=== PATIENT | male | born 1955 | race Caucasian/White ===

== ENCOUNTER 2017-06-24 16:37 | Inpatient (IN) ==
[2017-06-24] MEDS ORDERED: 0.9 % Sodium Chloride 1,000 ML IVC ONE (17:05)
[2017-06-24] MEDS ORDERED: Ondansetron 4 MG/2 ML VIAL IVP ONE (17:07)
[2017-06-24] MEDS ORDERED: Hyoscyamine 0.5 MG/ML MLS IVP ONE (17:07)
--- NOTE | 2017-06-24 17:13 | Emergency Department Note ---
Disposition Clinical Impression: SBO (small bowel obstruction) Abdominal pain Qualifiers: Abdominal location: generalized Qualified Code(s): R10.84 - Generalized abdominal pain Disposition: Admitted As Inpatient Condition: Fair Time of Disposition: 19:11 Abdominal Pain HPI - General Chief Complaint: ED Abdominal Pain Stated Complaint: abd pain Time Seen by Provider: 06/24/17 16:55 Source: patient Nursing Notes Reviewed: Yes Vital Signs Reviewed: Yes - History of Present Illness HPI Narrative: Patient is a 62-year-old male who presents to [facility] ED with a chief complaint of abdominal pain. States he ate breakfast this morning eggs and blancas and then approximately within one hour, he started having worsening abdominal pain, nausea. States he made himself vomit. No chest pain, difficulty breathing, problems with urination or bowel movements. Patient has not had any intra- abdominal surgeries in the past. Denies any fevers or chills. Patient admits to drinking alcohol approximately 5-6 beers every other day. He is also a smoker, denies any illicit drug use. Pt Subjective Complaint: abdominal pain Onset (ago): hour(s) Consistency: Worsening Location: diffuse Pain Severity: severe Pain Scale: 8 Quality: aching Radiation: none Migration to: no migration Improves with: nothing Worsens with: eating Associated symptoms: Reports: nausea, vomiting. Denies: diarrhea, fever, chills , constipation, dysuria Treatments prior to arrival: none - Related Data Allergies Allergy/AdvReac Type Severity Reaction Status Date / Time No Known Allergies Allergy Verified 06/24/17 16:45 All systems ED: reviewed and negative except as stated. Abdominal Pain PMH - Past Medical History Medical history: Reports: no medical history Male Surgical History: Reports: other Psychiatric history: Reports: no psych history - Social History Smoking status: Current every day smoker Alcohol use: Reports: occasionally Drug use: Reports: none Physical Exam - General Limitations: no limitations General appearance: alert - Head Head exam: atraumatic, normocephalic, normal inspection - Eye Eye exam: Present: normal appearance, EOMI - ENT ENT exam: normal exam, normal oropharynx, mucous membranes moist - Neck Neck exam: Present: normal inspection, full ROM, trachea midline - Chest Chest inspection: Present: normal inspection, symmetric chest wall rise - Respiratory Respiratory exam: Present: normal lung sounds bilaterally - Cardiovascular Cardiovascular exam: Present: regular rate, normal rhythm, normal heart sounds - Abdominal Exam Abdominal exam: Present: soft, tenderness, normal bowel sounds. Absent: distention, guarding, rebound, rigidity Abdominal tenderness: Present: diffuse, moderate - Extremities Exam Extremities exam: Present: normal inspection, full ROM. Absent: tenderness, pedal edema - Neurological Exam Neurological exam: Present: alert, oriented X3 - Psychiatric Psychiatric exam: Present: normal affect, normal mood - Skin Skin exam: Present: warm, dry, intact, normal color Course Course Narrative: Patient seen and examined. Generalized abdominal pain with nausea and vomiting. Patient does drink alcohol. Abdominal labs, CT abdomen and pelvis ordered. - Reevaluation(s) Reevaluation #1: CT shows small bowel obstruction with a transition point in the mid right abdomen. Mild leukocytosis of 14. I discussed with surgeon Dr. Ennis who will see the patient in consult tomorrow. I discussed with hospitalist who has accepted patient for admission. Patient was still having pain. He was given 50 g of fentanyl. He did not have relief with this so 5 mg of Nubain were ordered. Time: 19:10 Vital Signs Temperature 97.8 F 06/24/17 16:46 Pulse Rate 56 06/24/17 16:46 Respiratory Rate 20 06/24/17 16:46 Blood Pressure 127/76 06/24/17 16:46 O2 Sat by Pulse Oximetry 98 06/24/17 16:46 Temperature 98.6 F 06/25/17 19:47 Pulse Rate 56 06/25/17 19:47 Respiratory Rate 16 06/25/17 19:47 Blood Pressure 142/77 06/25/17 20:47 O2 Sat by Pulse Oximetry 96 06/25/17 19:47 Oxygen Delivery Oxygen Delivery Room Air Abdominal Pain - Medical Records Medical records reviewed: Yes I reviewed the patient's medical records. - Lab Data Lab results reviewed: Yes I reviewed the patient's lab results. Result diagrams: 06/25/17 06:08 06/25/17 06:08 Lab Results 06/24/17 06/24/17 06/24/17 Range/Units 17:10 17:10 17:38 WBC 14.9 H (4.3-11.1) K/mcL RBC 4.55 (4.19-5.50) M/mcL Hgb 14.2 (12.9-16.9) g/dL Hct 40.8 (37.5-50.1) % MCV 89.7 (83.0-100.0) fL MCH 31.2 (28.0-33.3) pg MCHC 34.8 (31.6-35.5) g/dL RDW 12.7 (11.5-14.5) % Plt Count 393 (140-400) K/mcL MPV 9.0 L (9.4-12.4) fL Immature Gran % 0.5 (0-4) % Seg Neutrophils % 85.6 % Lymphocytes % 9.5 % Monocytes % 3.8 % Eosinophils % 0.1 % Basophils % 0.5 % Neutrophils # 12.8 H (1.6-8.9) K/mcL Lymphocytes # 1.4 (0.6-4.6) K/mcL Monocytes # 0.6 (0.0-1.3) K/mcL Eosinophils # 0.0 (0.0-0.6) K/mcL Basophils # 0.1 (0.0-0.2) K/mcL Immature Plt Fraction 2.0 (1.1-6.1) % Sodium 137 (136-145) mEq/L Potassium 4.0 (3.5-5.1) mEq/L Chloride 104 (98-107) mEq/L Carbon Dioxide 27 (23-29) mEq/L BUN 14 (8-23) mg/dL Creatinine 0.85 (0.70-1.30) mg/dL Est GFR ( Amer) > 60 (> 60) Est GFR (Non-Af Amer) > 60 (> 60) BUN/Creatinine Ratio 16 (6-26) Glucose 123 H (70-105) mg/dL Calculated Osmolality 286 (280-300) Calcium 9.8 (8.6-10.3) mg/dL Total Bilirubin 0.4 (0.3-1.0) mg/dL Direct Bilirubin 0.1 (0.0-0.2) mg/dL Indirect Bilirubin 0.3 (0.0-1.2) mg/dL AST 18 (13-39) Units/L ALT 15 (7-52) Units/L Alkaline Phosphatase 81 (34-104) Units/L Serum Total Protein 7.3 (6.4-8.9) g/dL Albumin 4.5 (3.5-5.7) g/dL Globulin 2.8 (2.4-3.5) g/dL Albumin/Globulin Ratio 1.6 (1.1-2.2) Lipase 8 L (11-82) Units/L Urine Color Yellow (Yellow) Urine Clarity Cloudy A (Clear) Urine pH 7.5 (5.0-8.0) pH Units Ur Specific Menard 1.023 (1.010-1.025) Urine Protein Negative (Neg-Trace) mg/dL Urine Glucose (UA) Normal (Normal) mg/dL Urine Ketones Negative (Negative) mg/dL Urine Blood Negative (Negative) Urine Nitrite Negative (Negative) Urine Bilirubin Negative (Negative) Urine Urobilinogen Normal (Normal) mg/dL Ur Leukocyte Esterase Negative (Negative) Urine Microscopic RBC 0-3 (0-3) per hpf Urine Microscopic WBC 0-3 (0-3) per hpf Ur Squamous Epith Cells Moderate H (None-Few) per lpf Urine Bacteria None Seen (None-Few) per hpf Hyaline Casts None Seen (None-Few) per lpf Ur Culture Indicated? NO (NO) Ethyl Alcohol < 10 (Less than 10) mg/dL - Radiology Data Radiology results reviewed: Yes I reviewed the patient's radiology results. Abdomen/Pelvis CT 06/24/17 17:06 IMPRESSION: Findings likely consistent with the early small-bowel obstruction, transition point appears to be within the right mid abdomen. D/ / Martin Reyna MD / Martin Reyna MD Interpreting Provider: Martin Reyna MD Attestation Statement - Attestation Attestation: I examined this patient and my medical decision-making was reviewed with the Resident Physician. I agree with the documented findings, disposition and treatment plan as described except to the extent set forth below. History and Exam by me shows: Small bowl obstruction, will admit, npo, general surgery consult. Patient stable at time of admission.
[2017-06-24 17:17] LABS: Basophils # 0.1 K/mcL (0.0-0.2); Basophils % 0.5 %; Eosinophils % 0.1 %; Hematocrit 40.8 % (37.5-50.1); Hemoglobin 14.2 g/dL (12.9-16.9); Immature Granulocytes % 0.5 % (0-4); Lymphocytes # 1.4 K/mcL (0.6-4.6); Lymphocytes % 9.5 %; Mean Corpuscular HGB Conc 34.8 g/dL (31.6-35.5); Mean Corpuscular Hemoglobin 31.2 pg (28.0-33.3); Mean Corpuscular Volume 89.7 fL (83.0-100.0); Monocytes # 0.6 K/mcL (0.0-1.3); Monocytes % 3.8 %; Neutrophils # 12.8 K/mcL (1.6-8.9); Platelet Count 393 K/mcL (140-400); Red Blood Count 4.55 M/mcL (4.19-5.50); Red Cell Distribution Width 12.7 % (11.5-14.5); Segmented Neutrophils % 85.6 %
[2017-06-24 17:39] LABS: Alanine Aminotransferase 15 Units/L (7-52); Albumin 4.5 g/dL (3.5-5.7); Albumin/Globulin Ratio 1.6 (1.1-2.2); Alkaline Phosphatase 81 Units/L (34-104); Aspartate Amino Transferase 18 Units/L (13-39); BUN/Creatinine Ratio 16 (6-26); Bilirubin,Direct 0.1 mg/dL (0.0-0.2); Bilirubin,Indirect 0.3 mg/dL (0.0-1.2); Bilirubin,Total 0.4 mg/dL (0.3-1.0); Blood Urea Nitrogen 14 mg/dL (8-23); Calcium 9.8 mg/dL (8.6-10.3); Carbon Dioxide 27 mEq/L (23-29); Chloride 104 mEq/L (98-107); Globulin 2.8 g/dL (2.4-3.5); Glucose 123 mg/dL (70-105); Lipase 8 Units/L (11-82); Osmolality,Calculated 286 (280-300); Sodium 137 mEq/L (136-145); Total Protein 7.3 g/dL (6.4-8.9); eGFR For African Americans > 60 (> 60); eGFR For Non-African Americans > 60 (> 60)
[2017-06-24 17:44] LABS: Bilirubin,Urine Negative (Negative); Blood,Urine Negative (Negative); Clarity,Urine Cloudy (Clear); Color,Urine Yellow (Yellow); Glucose,Urine (UA) Normal (Normal); Ketones,Urine Negative (Negative); Leukocyte Esterase,Urine Negative (Negative); Nitrite,Urine Negative (Negative); PH,Urine 7.5 pH Units (5.0-8.0); Protein,Urine Negative (Neg-Trace); Specific Gravity,Urine 1.023 (1.010-1.025); Urobilinogen,Urine Normal (Normal)
[2017-06-24 17:46] LABS: Bacteria,Urine None Seen per hpf (None-Few); Hyaline Casts,Urine None Seen per lpf (None-Few); RBC,Urine 0-3 per hpf (0-3); Squamous Epithelial Cell,Urine Moderate per lpf (None-Few); WBC,Urine 0-3 per hpf (0-3)
[2017-06-24] MEDS ORDERED: *HR* FentaNYL (PF) 100 MCG/2 ML VIAL IVP ONE (18:03)
[2017-06-24] MEDS ORDERED: *HR* Nalbuphine 20 MG/ML AMPUL IVP ONE (18:37)
[2017-06-24] MEDS ORDERED: *HR* Nalbuphine 10 MG/ML AMPUL IVP ONE (18:45)
[2017-06-24] MEDS ORDERED: Haloperidol Lactate 5 MG/ML VIAL IVP ONE (18:57)
[2017-06-24] MEDS ORDERED: Naloxone 0.4 MG/ML INJ IVP PRN (19:42)
[2017-06-24] MEDS ORDERED: Ondansetron 4 MG/2 ML VIAL IVP PRN (19:42)
[2017-06-24] MEDS ORDERED: *HR* Promethazine 25 MG/ML VIAL IVP PRN (19:42)
[2017-06-24] MEDS ORDERED: 0.9 % Sodium Chloride 1,000 ML IVC SCH (19:45)
[2017-06-24] MEDS ORDERED: *HR* FentaNYL (PF) 100 MCG/2 ML VIAL IVP PRN (19:52)
--- NOTE | 2017-06-24 20:10 | Internal Med History&Physical ---
Date of Encounter: 06/24/17 Time of Encounter: 20:09 Internal Medicine - H&P: HPI Admitted From: Home Plans for Post Hospital Care: Home History of present illness: Patient is a 62-year-old male who presents to [facility] ED with a chief complaint of abdominal pain. States he ate breakfast this morning eggs and blancas and then approximately within one hour, he started having worsening abdominal pain, nausea. States he made himself vomit but denies hematemesis or bloody stool. No chest pain, difficulty breathing, problems with urination or bowel movements. Patient has not had any intra-abdominal surgeries in the past. Denies any fevers or chills. Patient admits to drinking alcohol approximately 5 -6 beers every other day. He is also a smoker, denies any illicit drug use. Past Med Surg Social Fam HX - Past Medical History Medical history: no medical history Psychiatric history: no psych history - Social History Smoking Status: Current every day smoker Smokeless Tobacco Status: No Alcohol use: occasionally Drug use: none Internal Medicine - H&P: Meds 3 Allergy/AdvReac Type Severity Reaction Status Date / Time No Known Allergies Allergy Verified 06/24/17 16:45 All Systems PM: A 10-system review of systems was performed and is negative for pertinent findings except as documented above in the HPI. Review of systems: REVIEW OF SYSTEMS: CONSTITUTIONAL: No weight loss, fever, chills, weakness or fatigue. HEENT: Eyes: No visual loss, blurred vision, double vision or yellow sclerae. Ears, Nose, Throat: No hearing loss, sneezing, congestion, runny nose or sore throat. SKIN: No rash or itching. CARDIOVASCULAR: No chest pain, chest pressure or chest discomfort. No palpitations or edema. RESPIRATORY: No shortness of breath, cough or sputum. GASTROINTESTINAL: see HPI. GENITOURINARY: No dysuria, urgency, or frequency. NEUROLOGICAL: No headache, dizziness, syncope, paralysis, ataxia, numbness or tingling in the extremities. No change in bowel or bladder control. MUSCULOSKELETAL: No muscle, back pain, joint pain or stiffness. HEMATOLOGIC: No anemia, bleeding or bruising. LYMPHATICS: No enlarged nodes. No history of splenectomy. PSYCHIATRIC: No history of depression or anxiety. ENDOCRINOLOGIC: No reports of sweating, cold or heat intolerance. No polyuria or polydipsia. - Constitutional Vitals: Temp Pulse Resp BP Pulse Ox 97.8 F 70 16 141/83 98 06/24/17 16:46 06/24/17 19:15 06/24/17 19:15 06/24/17 19:15 06/24/17 19:15 General appearance: Present: A&O X 3 Exam: PHYSICAL EXAMINATION: GENERAL APPEARANCE: The patient is alert, oriented and in no acute distress. HEENT: Head is normocephalic. The sinuses are nontender. Pupils are equal and reactive. The nares are patent. Oropharynx clear without lesions. NECK: Supple without lymphadenopathy. HEART: Regular rate and rhythm. LUNGS: No crackles or wheezes are heard. ABDOMEN: Soft, mildly diffusely tender, nondistended with good bowel sounds heard. Inguinal area is normal. EXTREMITIES: Without cyanosis, clubbing or edema. NEUROLOGICAL: Gross nonfocal. SKIN: Warm and dry without any rash. Internal Med - H&P Results - Labs CBC & Chem 7: 06/24/17 17:10 06/24/17 17:10 - Assessment and plan (1) SBO (small bowel obstruction) Current Visit: Yes Status: Acute Assessment and plan: - Presented with acute onset abdominal pain with nausea and vomiting. - I personally reviewed CT results, which revealed possible partial small bowel obstruction. - I would keep the patient nothing by mouth, general surgery already consulted, will see the patient in a.m. - IV fluid, pain control, and antiemetics. - pt refused NG. (2) Alcohol abuse Current Visit: No Status: Chronic Assessment and plan: - History of alcohol abuse, he was found to be agitated at ED, and required Haldol, unclear if this is related to alcohol withdrawal or abdominal pain. His belly is soft, mildly tender with palpation, no rebound, and positive bowel sounds on physical. - We will check lactic acid to rule out ischemic bowel. Ativan when necessary and CIWA. - Banana bag with thiamine. (3) Nicotine abuse Current Visit: No Status: Chronic Assessment and plan: - Nicotine patch daily. - Time Spent With Patient Total time spent is greater than 50% in coordination of care (as documented) at patient's floor/unit and/or counseling patient: Greater than 35 minutes
[2017-06-24] MEDS ORDERED: MVI, adult with vitamin K 10 ML in 0.9 % Sodium Chloride 1,000 ML IVC ONE (20:11)
[2017-06-24] MEDS ORDERED: *HR* LORazepam 2 MG/ML VIAL IVP PRN (20:16)
[2017-06-24 20:43] LABS: Ethanol < 10 mg/dL (Less than 10)
[2017-06-24] MEDS: OXYCODONE Oral CONC 10 MG/0.5 ML ORAL.SYG SL PRN (21:08)
[2017-06-24] MEDS: Nicotine 21 MG PATCH.TD24 TD SCH (21:09)
--- NOTE | 2017-06-24 21:20 | Event Note ---
Date of Encounter: 06/24/17 Time of Encounter: 21:19 Patient seen and examined. Agree with the H&P as written by the REFRIGERATION INSTALLER. Patient is being admitted with N/V/abd pain. Started this morning. Found to have SBO. ??etiology?? BP ok upon presentation but noted to be hypertensive later in stay into the 160s systolic Mild left sided abdominal tenderness on exam. Hypoactive bowel sounds. Will treat conservatively. surgery consulted from ED. IVF. Anti-emetics. Pain control. NPO. No need for NG tube. Hoping some pain control will help BP. Can use IV hydralazine PRN if remains elevated.
[2017-06-24 21:41] LABS: Amphetamine Screen,Urine Positive ng/mL (Cutoff=1000); Barbiturate Screen,Urine Negative ng/mL (Cutoff=200); Benzodiazepines Screen,Urine Negative ng/mL (Cutoff=200); Cannabinoid Screen,Urine Positive ng/mL (Cutoff = 50); Cocaine Screen,Urine Negative ng/mL (Cutoff= 300); Opiate Screen,Urine Positive ng/mL (Cutoff=300); Phencyclidine Screen,Urine Negative ng/mL (Cutoff=25)
[2017-06-25] MEDS ORDERED: *HR* LORazepam 2 MG/ML VIAL IVP SCH
[2017-06-25] MEDS: OXYCODONE Oral CONC 10 MG/0.5 ML ORAL.SYG SL PRN ×4 (02:12→20:10)
[2017-06-25] MEDS: 0.9 % Sodium Chloride 1,000 ML IVC SCH ×2 (03:23→12:57)
[2017-06-25] MEDS: *HR* Heparin 5,000 UNIT/ML VIAL SQ SCH ×2 (05:49→16:22)
[2017-06-25 06:51] LABS: Basophils % 0.2 %; Eosinophils % 0.1 %; Hematocrit 37.9 % (37.5-50.1); Hemoglobin 13.1 g/dL (12.9-16.9); Immature Granulocytes % 0.4 % (0-4); Lymphocytes % 13.4 %; Mean Corpuscular HGB Conc 34.6 g/dL (31.6-35.5); Mean Corpuscular Hemoglobin 30.9 pg (28.0-33.3); Mean Corpuscular Volume 89.4 fL (83.0-100.0); Mean Platelet Volume 9.7 fL (9.4-12.4); Monocytes # 0.8 K/mcL (0.0-1.3); Monocytes % 5.4 %; Neutrophils # 12.2 K/mcL (1.6-8.9); Platelet Count 336 K/mcL (140-400); Red Blood Count 4.24 M/mcL (4.19-5.50); Red Cell Distribution Width 12.9 % (11.5-14.5); Segmented Neutrophils % 80.5 %
[2017-06-25 07:04] LABS: Alanine Aminotransferase 12 Units/L (7-52); Albumin 3.8 g/dL (3.5-5.7); Albumin/Globulin Ratio 1.4 (1.1-2.2); Alkaline Phosphatase 71 Units/L (34-104); Aspartate Amino Transferase 14 Units/L (13-39); BUN/Creatinine Ratio 17 (6-26); Bilirubin,Total 0.5 mg/dL (0.3-1.0); Blood Urea Nitrogen 11 mg/dL (8-23); Calcium 8.8 mg/dL (8.6-10.3); Carbon Dioxide 23 mEq/L (23-29); Chloride 112 mEq/L (98-107); Globulin 2.7 g/dL (2.4-3.5); Glucose 133 mg/dL (70-105); Osmolality,Calculated 285 (280-300); Potassium 3.9 mEq/L (3.5-5.1); Sodium 137 mEq/L (136-145); Total Protein 6.5 g/dL (6.4-8.9); eGFR For African Americans > 60 (> 60); eGFR For Non-African Americans > 60 (> 60)
--- NOTE | 2017-06-25 12:55 | Internal Med Progress Note ---
Date of Encounter: 06/25/17 Time of Encounter: 10:20 - Assessment and plan (1) SBO (small bowel obstruction) Current Visit: Yes Status: Acute Assessment and plan: Continues to have bowel obstruction. Will get KUB x-ray. Monitor vital signs. Keep nothing by mouth. Follow surgery recommendations. Moderate risk for complications. (2) Alcohol abuse Current Visit: Yes Status: Chronic Assessment and plan: Monitoring for signs of withdrawal. We will place patient on thiamine and folic acid supplements. (3) Nicotine abuse Current Visit: No Status: Chronic Assessment and plan: On nicotine patch - Time Spent With Patient Total time spent is greater than 50% in coordination of care (as documented) at patient's floor/unit and/or counseling patient: - Subjective Interval history: Patient continues to have abdominal discomfort and bloating. Has been belching a lot this morning. Passed flatus once. No bowel movement yet. No nausea or vomiting. - Constitutional Vitals: Temp Pulse Resp BP Pulse Ox 98.8 F 54 16 162/85 97 06/25/17 08:09 06/25/17 08:09 06/25/17 08:09 06/25/17 08:09 06/25/17 08:09 General appearance: Present: cooperative, mild distress, A&O X 3, answers questions appropriately - Neck Neck exam general surgery: Present: supple, trachea midline. Absent: lymphadenopathy - Respiratory Respiratory exam: Present: CTAB. Absent: accessory muscle use, rales, rhonchi, wheezes - Cardiovascular Cardiovascular exam: Present: RRR, +S1, +S2. Absent: diastolic murmur, gallop, rubs, systolic murmur - GI/Abdominal GI/Abdominal exam: Present: diminished bowel sounds, soft, tenderness ( Generalized), no peritoneal signs. Absent: distended - Extremities Exam Extremities exam: Present: warm, radial pulses palpable and symmetrical. Absent : calf tenderness, cyanotic, pedal edema - Neurological Exam Neurological exam: Present: alert, CN II-XII intact, oriented X3, no focal deficits. Absent: facial droop, speech deficit Internal Medicine: Result - Labs CBC & Chem 7: 06/25/17 06:08 06/25/17 06:08 Labs: Short CBC 06/25/17 Range/Units 06:08 WBC 15.1 H (4.3-11.1) K/mcL Hgb 13.1 (12.9-16.9) g/dL Hct 37.9 (37.5-50.1) % Plt Count 336 (140-400) K/mcL Neutrophils # 12.2 H (1.6-8.9) K/mcL BMP 06/25/17 06:08 Sodium 137 Potassium 3.9 Chloride 112 H Carbon Dioxide 23 BUN 11 Creatinine 0.66 L Glucose 133 H Calcium 8.8 Liver Function 06/25/17 Range/Units 06:08 Total Bilirubin 0.5 (0.3-1.0) mg/dL AST 14 (13-39) Units/L ALT 12 (7-52) Units/L Alkaline Phosphatase 71 (34-104) Units/L Albumin 3.8 (3.5-5.7) g/dL Consult Discharge Plan - Plan Referrals: NONE,PCP [Primary Care Provider] - Jaclyn Fisher [Family Provider] -
[2017-06-25] MEDS ORDERED: Folic Acid 1 MG in 0.9 % Sodium Chloride 50 ML IVPB STA (13:00)
--- NOTE | 2017-06-25 13:17 | General Surgery Consult Note ---
Date of Encounter: 06/25/17 Time of Encounter: 13:00 Assessment and Plan (1) SBO (small bowel obstruction) Current Visit: Yes Status: Acute The patient does not appear to have high-grade bowel obstruction. There is stool in the colon and only mild dilatation of the small bowel. A small bowel follow-through will answer this question. I will see order of the small bowel follow-through after rounds tomorrow morning. Because of the possibility of interrupted toxic bacteria, I did place the patient on broad-spectrum antibiotic. Alek Ennis MD [facility] History of Present Illness Consult date: 06/25/17 Reason for consult: other (Abnormal CAT scan) History of present illness: The patient is a 62-year-old otherwise healthy male who developed abdominal pain and nausea after eating fast food last week. He stated that yesterday he began having centralized abdominal discomfort. He developed nausea and forced himself to vomit. He has had no spontaneous vomiting. Today his abdomen continues to hurt diffusely however he has no peritoneal signs and no increasing pain with physical examination. He has not had a bowel movement since yesterday. He did have a bowel movement yesterday with no evidence of diarrhea. There is no evidence of rectal bleeding. He does not have chronic abdominal pain. He denies shakes chills or fever. He denies episodes of jaundice. He sought evaluation in the emergency room. Emergency room demonstrated a mildly dilated small bowel with a maximum diameter of 3 cm with a possible transition point in the right mid abdomen. I personally reviewed the CAT scan films and I was unable to identify a transition point. This appears to be a small bowel injury pattern either from gastroenteritis or enterotoxin. To be sure there is no evidence of mechanical bowel obstruction, small bowel follow-through is indicated. We will make sure he has a small bowel follow-through for Monday. Because of his leukocytosis and the possibility of enterotoxin, I did start broad-spectrum antibiotic Past Med Surg Social Fam HX - Past Medical History Medical history: no medical history Psychiatric history: no psych history - Social History Smoking Status: Current every day smoker Packs per day: 2 Smokeless Tobacco Status: No Alcohol use: occasionally Drug use: none Medications and Allergies No Known Home Drugs 06/25/17 [History] 3 Allergy/AdvReac Type Severity Reaction Status Date / Time No Known Allergies Allergy Verified 04/07/18 16:45 Review of Systems All systems PM: The remainder of the systems were reviewed and are negative General Surgery Exam Initial Vital Signs Temp Pulse Resp BP Pulse Ox 97.8 F 56 20 127/76 98 06/24/17 16:46 06/24/17 16:46 06/24/17 16:46 06/24/17 16:46 06/24/17 16:46 - General physical appearance well developed, well nourished, no distress - Neck no masses, no bruits, trachea midline, no lymphadectomy, no venous distension - Respiratory normal expansion, normal respiratory effort, clear to percussion, clear to auscultation - Cardiovascular Cardiovascular exam: Present: RRR, no murmurs/rubs/gallops - Abdomen Abdomen general surgery: Present: bowel sounds present, soft, non tender - Neurologic Present: CN 2-12 grossly intact, normal coordination, normal sensation - Psychiatric Psychiatric general surgery: Present: appropriate, oriented to person, oriented to place, oriented to time, speech is normal, memory intact Exam Initial Vital Signs Temp Pulse Resp BP Pulse Ox 97.8 F 56 20 127/76 98 06/24/17 16:46 06/24/17 16:46 06/24/17 16:46 06/24/17 16:46 06/24/17 16:46 Results - Labs 06/25/17 06:08 06/25/17 06:08 Abnormal lab results WBC 15.1 K/mcL (4.3-11.1) H 06/25/17 06:08 Neutrophils # 12.2 K/mcL (1.6-8.9) H 06/25/17 06:08 Chloride 112 mEq/L (98-107) H 06/25/17 06:08 Creatinine 0.66 mg/dL (0.70-1.30) L 06/25/17 06:08 Glucose 133 mg/dL (70-105) H 06/25/17 06:08 POC Glucose 115 mg/dL (70-99) H 06/25/17 12:20 Lipase 8 Units/L (11-82) L 06/24/17 17:10 Urine Clarity Cloudy (Clear) A 06/24/17 17:38 Ur Squamous Epith Cells Moderate per lpf (None-Few) H 06/24/17 17:38 Urine Opiates Screen Positive ng/mL (Vepudp=076) H 06/24/17 20:12 Ur Amphetamines Screen Positive ng/mL (Tepxri=[id number]) H 06/24/17 20:12 U Marijuana (THC) Screen Positive ng/mL (Cutoff = 50) H 06/24/17 20:12 Diabetes panel 06/25/17 Range/Units 06:08 Sodium 137 (136-145) mEq/L Potassium 3.9 (3.5-5.1) mEq/L Chloride 112 H (98-107) mEq/L Carbon Dioxide 23 (23-29) mEq/L BUN 11 (8-23) mg/dL Creatinine 0.66 L (0.70-1.30) mg/dL Glucose 133 H (70-105) mg/dL Calcium 8.8 (8.6-10.3) mg/dL AST 14 (13-39) Units/L ALT 12 (7-52) Units/L Alkaline Phosphatase 71 (34-104) Units/L Albumin 3.8 (3.5-5.7) g/dL Calcium panel 06/25/17 Range/Units 06:08 Calcium 8.8 (8.6-10.3) mg/dL Albumin 3.8 (3.5-5.7) g/dL Pituitary panel 06/25/17 Range/Units 06:08 Sodium 137 (136-145) mEq/L Potassium 3.9 (3.5-5.1) mEq/L Chloride 112 H (98-107) mEq/L Carbon Dioxide 23 (23-29) mEq/L BUN 11 (8-23) mg/dL Creatinine 0.66 L (0.70-1.30) mg/dL Glucose 133 H (70-105) mg/dL Calcium 8.8 (8.6-10.3) mg/dL Adrenal panel 06/25/17 Range/Units 06:08 Sodium 137 (136-145) mEq/L Potassium 3.9 (3.5-5.1) mEq/L Chloride 112 H (98-107) mEq/L Carbon Dioxide 23 (23-29) mEq/L BUN 11 (8-23) mg/dL Creatinine 0.66 L (0.70-1.30) mg/dL Glucose 133 H (70-105) mg/dL Calcium 8.8 (8.6-10.3) mg/dL Total Bilirubin 0.5 (0.3-1.0) mg/dL AST 14 (13-39) Units/L ALT 12 (7-52) Units/L Alkaline Phosphatase 71 (34-104) Units/L Albumin 3.8 (3.5-5.7) g/dL All other labs normal. - Imaging CT scan - abdomen: image reviewed (I personally reviewed the CAT scan in the abdomen. He does have a mildly dilated small bowel. There is no evidence of abscess. There is no evidence of inflammatory lesion. A transition point in the right mid abdomen is mentioned in the CT report and I am unable to identify this area. We will plan a small bowel follow-through tomorrow) Consult Discharge Plan - Plan Referrals: NONE,PCP [Primary Care Provider] - Jaclyn Fisher [Family Provider] -
[2017-06-25] MEDS: Ringers Solution, Lactated 1,000 ML IVC SCH (13:33)
[2017-06-25] MEDS: Nicotine 21 MG PATCH.TD24 TD SCH (13:37)
[2017-06-25] MEDS: Thiamine (B-1) 100 MG in 0.9 % Sodium Chloride 50 ML IVPB SCH (16:22)
[2017-06-25] MEDS: Piperacillin/Tazobactam 3.375 GM in 0.9 % Sodium Chloride Mini Bag 100 ML IVPB SCH (16:22)
[2017-06-26] MEDS: Piperacillin/Tazobactam 3.375 GM in 0.9 % Sodium Chloride Mini Bag 100 ML IVPB SCH ×3 (00:36→16:49)
[2017-06-26 05:12] LABS: Basophils # 0.1 K/mcL (0.0-0.2); Basophils % 0.4 %; Eosinophils % 0.2 %; Hematocrit 36.6 % (37.5-50.1); Hemoglobin 12.7 g/dL (12.9-16.9); Immature Granulocytes % 0.6 % (0-4); Lymphocytes # 3.1 K/mcL (0.6-4.6); Mean Corpuscular HGB Conc 34.7 g/dL (31.6-35.5); Mean Corpuscular Hemoglobin 31.1 pg (28.0-33.3); Mean Corpuscular Volume 89.5 fL (83.0-100.0); Mean Platelet Volume 9.5 fL (9.4-12.4); Monocytes # 1.2 K/mcL (0.0-1.3); Monocytes % 7.5 %; Neutrophils # 11.8 K/mcL (1.6-8.9); Platelet Count 317 K/mcL (140-400); Red Blood Count 4.09 M/mcL (4.19-5.50); Red Cell Distribution Width 12.9 % (11.5-14.5); Segmented Neutrophils % 72.3 %
[2017-06-26 05:22] LABS: BUN/Creatinine Ratio 18 (6-26); Blood Urea Nitrogen 13 mg/dL (8-23); Calcium 8.6 mg/dL (8.6-10.3); Carbon Dioxide 24 mEq/L (23-29); Chloride 107 mEq/L (98-107); Glucose 120 mg/dL (70-105); Osmolality,Calculated 285 (280-300); Potassium 3.9 mEq/L (3.5-5.1); Sodium 137 mEq/L (136-145); eGFR For African Americans > 60 (> 60); eGFR For Non-African Americans > 60 (> 60)
[2017-06-26] MEDS: *HR* Heparin 5,000 UNIT/ML VIAL SQ SCH ×2 (06:13→18:12)
--- NOTE | 2017-06-26 08:50 | General Surgery Progress Note ---
<Massimo Castellanos - Last Filed: 06/26/17 10:52> Date of Encounter: 06/26/17 Time of Encounter: 08:40 - Assessment and Plan (1) SBO (small bowel obstruction) Current Visit: Yes Status: Acute Per review of CT 06/24, there is stool in the colon with mild dilatation. Continuing Zosyn setting of possible enterotoxic etiology. He is afebrile, though has a wt ct, he continues to pass gas, has not yet had a BM in 2 days, he is not nauseated. We will add a clear liquid diet today, and advance to see if this produces nausea/distention. Will proceed with small bowel follow- through if he fails advancing of diet. Subjective Patient reports: no new complaints, afebrile Narrative: Today Mr. Singleton endorses mild abdominal discomfort, improved, no nausea, last BM 2 days ago, he has passed more gas today. No other complaints. Objective Vital Signs - Last 8 Hours Temp Pulse Resp BP Pulse Ox 06/26/17 06:33 98.9 F 56 15 114/66 95 06/26/17 03:30 98.9 F 62 14 115/54 94 Intake and Output 06/25/17 06/26/17 06/26/17 23:59 07:59 15:59 Intake Total 100 / 100 100 / 100 Output Total 775 / 775 600 / 600 Balance -675 / -675 -500 / -500 Intake: IV Fluids 100 / 100 100 / 100 Zosyn 3.375 GM In 0.9 % Sodium 100 / 100 100 / 100 Chloride (Mini-Bag +) 100 ML @ 25 mls/hr IVPB Q8HR [facility] Rx#: [id number] Oral 0 / 0 0 / 0 Output: Urine 775 / 775 600 / 600 Other: Meal npo Weight 67.6 kg Blood Glucose* 122 105 Patient Weight 06/26/17 23:59 Weight 67.6 kg - General physical appearance well developed, well nourished, no distress - Eyes normal ocular movement - ENT normal mucosa - Neck Neck exam: no lymphadectomy, no venous distension - Respiratory normal expansion, normal respiratory effort, clear to auscultation - Cardiovascular Cardiovascular exam: Present: RRR, NR. Absent: JVD - Abdomen Abdomen: Present: bowel sounds present, soft. Absent: tympanic, distended Hernia: none - Integumentary no rash, no abnormal pigmentation - Neurologic normal coordination, normal sensation - Psychiatric oriented to time, oriented to person, oriented to place, speech is normal, memory intact - Labs 06/26/17 04:35 06/26/17 04:35 Diabetes panel 06/26/17 Range/Units 04:35 Sodium 137 (136-145) mEq/L Potassium 3.9 (3.5-5.1) mEq/L Chloride 107 (98-107) mEq/L Carbon Dioxide 24 (23-29) mEq/L BUN 13 (8-23) mg/dL Creatinine 0.71 (0.70-1.30) mg/dL Glucose 120 H (70-105) mg/dL Calcium 8.6 (8.6-10.3) mg/dL Calcium panel 06/26/17 Range/Units 04:35 Calcium 8.6 (8.6-10.3) mg/dL Pituitary panel 06/26/17 Range/Units 04:35 Sodium 137 (136-145) mEq/L Potassium 3.9 (3.5-5.1) mEq/L Chloride 107 (98-107) mEq/L Carbon Dioxide 24 (23-29) mEq/L BUN 13 (8-23) mg/dL Creatinine 0.71 (0.70-1.30) mg/dL Glucose 120 H (70-105) mg/dL Calcium 8.6 (8.6-10.3) mg/dL Adrenal panel 06/26/17 Range/Units 04:35 Sodium 137 (136-145) mEq/L Potassium 3.9 (3.5-5.1) mEq/L Chloride 107 (98-107) mEq/L Carbon Dioxide 24 (23-29) mEq/L BUN 13 (8-23) mg/dL Creatinine 0.71 (0.70-1.30) mg/dL Glucose 120 H (70-105) mg/dL Calcium 8.6 (8.6-10.3) mg/dL Consult Discharge Plan - Plan Referrals: NONE,PCP [Primary Care Provider] - Jaclyn Fisher [Family Provider] - <Alek Ennis - Last Filed: 06/26/17 14:00> Date of Encounter: 06/26/17 - Assessment and Plan (1) SBO (small bowel obstruction) Current Visit: Yes Status: Acute Objective Vital Signs - Last 8 Hours Temp Pulse Resp BP Pulse Ox 06/26/17 10:27 97.9 F 57 15 111/69 97 06/26/17 06:33 98.9 F 56 15 114/66 95 Intake and Output 06/25/17 06/26/17 06/26/17 23:59 07:59 15:59 Intake Total 1151 / 1151 100 / 100 571 / 571 Output Total 775 / 775 600 / 600 425 / 425 Balance 376 / 376 -500 / -500 146 / 146 Intake: IV Fluids 1151 / 1151 100 / 100 51 / 51 Lactated Ringers 1,000 ML @ 100 1000 / 1000 mls/hr IVC .Q10H [facility] Rx#: [id number] Zosyn 3.375 GM In 0.9 % Sodium 100 / 100 100 / 100 Chloride (Mini-Bag +) 100 ML @ 25 mls/hr IVPB Q8HR [facility] Rx#: [id number] Vitamin B-1 100 MG In 0.9 % 51 / 51 51 / 51 Sodium Chloride 50 ML @ 50 mls/ hr IVPB DAILY [facility] Rx#: [id number] Oral 0 / 0 0 / 0 520 / 520 Output: Urine 775 / 775 600 / 600 425 / 425 Other: Meal npo NPO Stool Size Small Stool Consistency formed Stool Color Brown # Voids 1 Weight 67.6 kg Blood Glucose* 122 105 Patient Weight 06/26/17 23:59 Weight 67.6 kg - Labs 06/26/17 04:35 06/26/17 04:35 Diabetes panel 06/26/17 Range/Units 04:35 Sodium 137 (136-145) mEq/L Potassium 3.9 (3.5-5.1) mEq/L Chloride 107 (98-107) mEq/L Carbon Dioxide 24 (23-29) mEq/L BUN 13 (8-23) mg/dL Creatinine 0.71 (0.70-1.30) mg/dL Glucose 120 H (70-105) mg/dL Calcium 8.6 (8.6-10.3) mg/dL Calcium panel 06/26/17 Range/Units 04:35 Calcium 8.6 (8.6-10.3) mg/dL Pituitary panel 04/09/18 Range/Units 04:35 Sodium 137 (136-145) mEq/L Potassium 3.9 (3.5-5.1) mEq/L Chloride 107 (98-107) mEq/L Carbon Dioxide 24 (23-29) mEq/L BUN 13 (8-23) mg/dL Creatinine 0.71 (0.70-1.30) mg/dL Glucose 120 H (70-105) mg/dL Calcium 8.6 (8.6-10.3) mg/dL Adrenal panel 06/26/17 Range/Units 04:35 Sodium 137 (136-145) mEq/L Potassium 3.9 (3.5-5.1) mEq/L Chloride 107 (98-107) mEq/L Carbon Dioxide 24 (23-29) mEq/L BUN 13 (8-23) mg/dL Creatinine 0.71 (0.70-1.30) mg/dL Glucose 120 H (70-105) mg/dL Calcium 8.6 (8.6-10.3) mg/dL - Attending Attestation I examined this patient and my medical decision-making was reviewed with the Resident Physician. I agree with the documented findings, disposition and treatment plan as described except to the extent set forth below. The patient is seen and evaluated on morning rounds with resident. He has absolutely no abdominal pain and is passing flatus. The abdomen is nondistended. He has no clinical signs of bowel obstruction. We will advance his diet. If he is unable to tolerate dietary advance we will get small bowel follow-through. Otherwise, he can advance his diet to regular Alek Ennis MD FACS
[2017-06-26] MEDS: Ringers Solution, Lactated 1,000 ML IVC SCH ×3 (09:39→21:33)
[2017-06-26] MEDS: Nicotine 21 MG PATCH.TD24 TD SCH (09:40)
[2017-06-26] MEDS: Thiamine (B-1) 100 MG in 0.9 % Sodium Chloride 50 ML IVPB SCH (09:54)
--- NOTE | 2017-06-26 17:05 | Internal Med Progress Note ---
Date of Encounter: 06/26/17 Time of Encounter: 17:03 - Assessment and plan (1) SBO (small bowel obstruction) Current Visit: Yes Status: Acute Assessment and plan: Appears to be resolving. Patient has had bowel movements. No abdominal discomfort or distention. We will place patient on clear liquids and advance diet as tolerated. Surgery following. (2) Alcohol abuse Current Visit: Yes Status: Chronic Assessment and plan: No signs of withdrawal. Continue supportive care. (3) Nicotine abuse Current Visit: No Status: Chronic Assessment and plan: On nicotine patch - Time Spent With Patient Total time spent is greater than 50% in coordination of care (as documented) at patient's floor/unit and/or counseling patient: - Subjective Interval history: Patient seen earlier today. Doing better overall. Denies any abdominal pain. Has had bowel movements. No nausea or vomiting. Feels much better overall. - Constitutional Vitals: Temp Pulse Resp BP Pulse Ox 98.1 F 62 15 108/67 97 06/26/17 14:05 06/26/17 14:05 06/26/17 14:05 06/26/17 14:05 06/26/17 14:05 General appearance: Present: cooperative, mild distress, A&O X 3, answers questions appropriately - Respiratory Respiratory exam: Present: CTAB. Absent: accessory muscle use, rales, rhonchi, wheezes - Cardiovascular Cardiovascular exam: Present: RRR, +S1, +S2. Absent: diastolic murmur, gallop, rubs, systolic murmur - GI/Abdominal GI/Abdominal exam: Present: normal bowel sounds, soft, no peritoneal signs. Absent: distended, tenderness - Extremities Exam Extremities exam: Present: warm, radial pulses palpable and symmetrical. Absent : calf tenderness, cyanotic, pedal edema - Neurological Exam Neurological exam: Present: CN II-XII intact, oriented X3, no focal deficits. Absent: pronater drift, facial droop, speech deficit Internal Medicine: Result - Labs CBC & Chem 7: 06/26/17 04:35 06/26/17 04:35 Labs: Short CBC 06/26/17 Range/Units 04:35 WBC 16.3 H (4.3-11.1) K/mcL Hgb 12.7 L (12.9-16.9) g/dL Hct 36.6 L (37.5-50.1) % Plt Count 317 (140-400) K/mcL Neutrophils # 11.8 H (1.6-8.9) K/mcL BMP 06/26/17 04:35 Sodium 137 Potassium 3.9 Chloride 107 Carbon Dioxide 24 BUN 13 Creatinine 0.71 Glucose 120 H Calcium 8.6 Consult Discharge Plan - Plan Referrals: NONE,PCP [Primary Care Provider] - Jaclyn Fisher [Family Provider] -
[2017-06-27] MEDS: Piperacillin/Tazobactam 3.375 GM in 0.9 % Sodium Chloride Mini Bag 100 ML IVPB SCH ×2 (01:03→10:57)
[2017-06-27] MEDS: *HR* Heparin 5,000 UNIT/ML VIAL SQ SCH (04:51)
[2017-06-27 05:34] LABS: Basophils # 0.1 K/mcL (0.0-0.2); Basophils % 0.9 %; Eosinophils # 0.2 K/mcL (0.0-0.6); Eosinophils % 2.4 %; Hematocrit 31.7 % (37.5-50.1); Immature Granulocytes % 0.2 % (0-4); Lymphocytes # 3.2 K/mcL (0.6-4.6); Lymphocytes % 32.8 %; Mean Corpuscular HGB Conc 34.1 g/dL (31.6-35.5); Mean Corpuscular Hemoglobin 30.5 pg (28.0-33.3); Mean Corpuscular Volume 89.5 fL (83.0-100.0); Monocytes # 0.8 K/mcL (0.0-1.3); Monocytes % 7.9 %; Neutrophils # 5.4 K/mcL (1.6-8.9); Platelet Count 262 K/mcL (140-400); Red Blood Count 3.54 M/mcL (4.19-5.50); Segmented Neutrophils % 55.8 %
[2017-06-27 05:35] LABS: Hemoglobin 10.8 g/dL (12.9-16.9)
[2017-06-27] MEDS: Thiamine (B-1) 100 MG in 0.9 % Sodium Chloride 50 ML IVPB SCH (08:59)
[2017-06-27] MEDS: Nicotine 21 MG PATCH.TD24 TD SCH (09:04)
--- NOTE | 2017-06-27 09:08 | General Surgery Progress Note ---
<Massimo Castellanos - Last Filed: 06/27/17 09:09> Date of Encounter: 06/27/17 Time of Encounter: 08:30 - Assessment and Plan (1) SBO (small bowel obstruction) Status: Acute Patient's leukocytosis has resolved, he is afebrile, has had 3 BMs yesterday, he has tolerated a regular diet for over 24 hours. Will sign-out, thank you for the consult, assess patient is ready for discharge. Subjective Patient reports: no new complaints, voiding w/o difficulty, afebrile Objective Vital Signs - Last 8 Hours Temp Pulse Resp BP Pulse Ox 06/27/17 07:33 98.3 F 52 16 113/66 95 06/27/17 04:23 98.7 F 74 18 111/69 96 Intake and Output 06/26/17 06/27/17 06/27/17 23:59 07:59 15:59 Intake Total 1220 / 1220 100 / 100 1000 / 1000 Output Total 1000 / 1000 Balance 1220 / 1220 -900 / -900 1000 / 1000 Intake: IV Fluids 1100 / 1100 100 / 100 1000 / 1000 Lactated Ringers 1,000 ML @ 100 1000 / 1000 1000 / 1000 mls/hr IVC .Q10H [facility] Rx#: [id number] Zosyn 3.375 GM In 0.9 % Sodium 100 / 100 100 / 100 Chloride (Mini-Bag +) 100 ML @ 25 mls/hr IVPB Q8HR [facility] Rx#: [id number] Oral 120 / 120 Output: Urine 1000 / 1000 Other: Meal Dinner Percent of Meal Consumed 100% Stool Size Moderate Stool Consistency liquid soft formed # Voids 1 1 # Bowel Movements 1 Weight 68 kg Patient Weight 06/27/17 23:59 Weight 68 kg - General physical appearance well developed, well nourished, no distress - Eyes PERRL, normal ocular movement - Neck Neck exam: no lymphadectomy - Respiratory normal respiratory effort, clear to auscultation - Cardiovascular Cardiovascular exam: Present: RRR, NR - Abdomen Abdomen: Present: soft, non tender - Psychiatric oriented to time, oriented to person, oriented to place, speech is normal, memory intact - Labs 06/27/17 04:35 06/26/17 04:35 Consult Discharge Plan - Plan Referrals: NONE,PCP [Primary Care Provider] - (Patient was offered to let us find him a primary care physician, he says he prefers to find his own. Thank you) Prescriptions: Amoxicillin/Clavulanate [Augmentin] 500 mg PO BIDWM #10 tablet Nicotine Patch [Nicoderm] 21 mg TD DAILY #30 patch.td24 <Alek Ennis - Last Filed: 06/27/17 17:08> Date of Encounter: 06/27/17 - Assessment and Plan (1) SBO (small bowel obstruction) Status: Resolved Objective Vital Signs - Last 8 Hours Temp Pulse Resp BP Pulse Ox 06/27/17 11:23 98.4 F 57 16 103/62 97 Intake and Output 06/27/17 06/27/17 06/27/17 07:59 15:59 23:59 Intake Total 100 / 100 1291 / 1291 Output Total 1000 / 1000 Balance -900 / -900 1291 / 1291 Intake: IV Fluids 100 / 100 1051 / 1051 Lactated Ringers 1,000 ML @ 100 1000 / 1000 mls/hr IVC .Q10H [facility] Rx#: [id number] Zosyn 3.375 GM In 0.9 % Sodium 100 / 100 Chloride (Mini-Bag +) 100 ML @ 25 mls/hr IVPB Q8HR [facility] Rx#: [id number] Vitamin B-1 100 MG In 0.9 % 51 / 51 Sodium Chloride 50 ML @ 50 mls/ hr IVPB DAILY [facility] Rx#: [id number] Oral 240 / 240 Output: Urine 1000 / 1000 Other: Meal Breakfast Percent of Meal Consumed 100% # Voids 1 1 # Bowel Movements 0 Weight 68 kg Patient Weight 06/27/17 23:59 Weight 68 kg - Labs 06/27/17 04:35 06/26/17 04:35 - Attending Attestation I examined this patient and my medical decision-making was reviewed with the Resident Physician. I agree with the documented findings, disposition and treatment plan as described except to the extent set forth below. The patient is seen and evaluated on morning rounds with resident. His abdominal pain is completely resolved. He has no nausea or vomiting. He is tolerating diet. We will plan to advance him to regular diet and sign off Alek Ennis MD FACS
[2017-06-27 11:26] VITALS: BP 103/62
--- NOTE | 2017-06-27 11:54 | Discharge Summary ---
- NOTES TO OUTPATIENT PROVIDER Notes to Outpatient Provider: f/u with PCP within a week. Date of Encounter: 06/27/17 Time of Encounter: 11:52 - Discharge Diagnosis (1) SBO (small bowel obstruction) Priority: Primary Status: Resolved (2) Alcohol abuse Priority: Secondary Status: Chronic (3) Nicotine abuse Priority: Secondary Status: Chronic Hospital course: Mr. Singleton is a 62 year old male presented with acute onset of abdominal pain. Abdominal CT showed possible partial small bowel obstruction. While in the Hospital, he developed tachycardia and leukocytosis. Acute gastroenteritis was suspected, and he was started on IV antibiotics. His bowel symptoms have significantly improved with conservative/supportive care, leukocytosis and her tachycardia resolved. He will be discharged home today with continuation of oral antibiotics for 5 more days. He will follow up with PCP within a week. Discharge discussed with: patient Time spent discussing smoking cessation with patient: more than 10 minutes - Time Spent with Patient Total time spent providing and/or coordinating discharge services: Greater than 30 minutes - Discharge Medications Prescriptions: Amoxicillin/Clavulanate [Augmentin] 500 mg PO BIDWM #10 tablet Nicotine Patch [Nicoderm] 21 mg TD DAILY #30 patch.td24 Home Medications: Amoxicillin/Clavulanate [Augmentin] 500 mg PO BIDWM #10 tablet 06/27/17 [Rx] Nicotine Patch [Nicoderm] 21 mg TD DAILY #30 patch.td24 06/27/17 [Rx] Allergies/Adverse Reactions: 3 Allergy/AdvReac Type Severity Reaction Status Date / Time No Known Allergies Allergy Verified 06/24/17 16:45 Date of admission: 06/24/17 19:43 Primary care physician: PCP NONE Consults: 06/25/17 08:17 Consult to Surgery [CONS] Routine Consulting Provider: [facility] Reason for Consult: SBO Call Completed: Yes 06/26/17 10:59 Consult to [employer] T[employer] [CONS] Routine Reason for SW Consult: Hx: Alcohol abuse Anticipated date of discharge: 06/27/17 - Constitutional Vitals: Temp Pulse Resp BP Pulse Ox 98.4 F 57 16 103/62 97 06/27/17 11:23 06/27/17 11:23 06/27/17 11:23 06/27/17 11:23 04/10/18 11:23 General appearance: Present: cooperative, mild distress, A&O X 3, answers questions appropriately Exam: PHYSICAL EXAMINATION: GENERAL APPEARANCE: The patient is alert, oriented and in no acute distress. HEENT: Head is normocephalic. The sinuses are nontender. Pupils are equal and reactive. The nares are patent. Oropharynx clear without lesions. NECK: Supple without lymphadenopathy. HEART: Regular rate and rhythm. LUNGS: No crackles or wheezes are heard. ABDOMEN: Soft, nontender, nondistended with good bowel sounds heard. Inguinal area is normal. EXTREMITIES: Without cyanosis, clubbing or edema. NEUROLOGICAL: Gross nonfocal. SKIN: Warm and dry without any rash. - Patient Status Disposition: Home, Self-Care Condition: Fair Functional capacity at discharge: independent ambulation Overall status at discharge: patient is back to baseline - Discharge Instructions Follow Up With: NONE,PCP [Primary Care Provider] - Jaclyn Fisher [Family Provider] - - Diet and Activity Activity: increase activity as tolerated Diet: advance to your usual diet
[2017-06-27] MEDS: Ringers Solution, Lactated 1,000 ML IVC SCH (18:58)
== END 2017-06-27 13:25 | disposition home or self-care (01) | DRG 390 ==
LOC: 3ANU 16:37 → EMEROO 16:37 → SUATTDRO 19:43 → 3ANU 19:48
PROVIDERS: ADMIT Internal Medicine; ATTEND Internal Medicine